=== PATIENT | female | born 1975 | race Caucasian/White ===

== ENCOUNTER 2020-10-22 20:50 | Emergency (ER) | payer BC ==
[~2020-10-22] VITALS: Ht 152.4 cm; Wt 58.1 kg
[2020-10-22 20:55] VITALS: Ht 152.4 cm; Wt 58.1 kg
[2020-10-22 21:47] VITALS: BP 121/77
== END 2020-10-22 21:47 | disposition home or self-care (01) ==
LOC: ED 20:50
DX: R20.2 Paresthesia of skin (principal)